=== PATIENT | male | born 1955 | race Caucasian/White ===

== ENCOUNTER → 2024-03-08 | Outpatient (CLI) | payer MEDICARE ==
[2024-03-08 11:16] LABS: Partial Thromboplastin Time 23.5 sec (22.0-30.0)
[2024-03-08 14:05] LABS: Prothrombin Time 10.6 sec (10.0-12.5)
[2024-03-08 15:33] LABS: HCT 48.9 % (39.6-50.0); MCH 30.4 pg (27.0-32.0); MCHC 32.7 g/dL (32.0-37.0); Mean Platelet Volume 9.8 FL (9.5-12.2); NRBC Per 100 WBC 0 X 10*3/uL (0.00-0.01); Platelet Count 287 X 10*3/uL (140-440); RBC 5.26 X 10*6/uL (4.40-5.60); RDW 13.1 % (11.5-14.5); WBC 6.77 X 10*3/uL (4.50-10.00)
[2024-03-08 15:47] LABS: ALT 47 U/L (10-49); AST 29 U/L (14-35); Albumin 4.4 g/dL (3.8-4.9); Albumin/Globulin Ratio 1.76 Ratio (1.60-3.17); Alkaline Phosphatase 119 U/L (41-126); BUN/Creat Ratio 15.91 Ratio (12.00-20.00); Blood Urea Nitrogen 17.5 mg/dL (9.0-27.0); Calcium 9.7 mg/dL (8.7-10.3); Carbon Dioxide 25.1 mmol/L (21.6-31.8); Chloride 103 mmol/L (96-109); Globulin 2.5 g/dL (1.6-3.3); Glucose 112 mg/dL (70-110); Sodium 137 mmol/L (135-145); Total Bilirubin 0.5 mg/dL (0.3-1.2); Total Protein 6.9 g/dL (6.2-8.2)
== END | disposition home or self-care (01) ==
LOC: LABWHC1 10:07
PROVIDERS: ATTEND Orthopaedic Surgery Sports Medicine
DX: Z01.818 Encounter for other preprocedural examination (principal)
CPT/HCPCS: 80053; 85027; 85610; 85730

== ENCOUNTER 2024-03-21 05:49 | Day surgery (SDC) | payer MEDICARE ==
[~2024-03-21 05:49] MED LIST: TRANEXAMIC 1,000 MG/100ML-NACL 1,000 MG in SALINE 1 100ML.BAG IVPB PRN
[2024-03-21] MEDS: IV FLUID CONTINUATION 1,000 ML IV ONE (06:45)
[2024-03-21] MEDS: ACETAMINOPHEN TAB 500 MG TAB PO PRN (06:45)
[2024-03-21] MEDS: GABAPENTIN 300 MG CAP PO PRN (06:46)
[2024-03-21] MEDS: MELOXICAM 7.5 MG TAB PO PRN (06:46)
[2024-03-21] MEDS: ONDANSETRON 4 MG/2 ML VIAL IVP PRN (07:00)
[2024-03-21] MEDS ORDERED: HYDROmorphone 0.5 MG/0.5 ML SYRINGE IVP PRN ×4 (07:00→09:33)
[2024-03-21] MEDS: LACTATED RINGERS 1,000 ML IV SCH ×2 (07:01→11:54)
[2024-03-21] MEDS: MIDAZOLAM 2 MG/2 ML VIAL IV ONE (07:09)
--- NOTE | 2024-03-21 07:19 | P.ANPRN ---
Procedure Note - Anesthesia - Nerve Block Performed Left Interscalene Single Time Out Performed: Yes ([id number]) Date of Procedure: 03/21/24 Procedure Start Time: 07:10 Procedure Stop Time: 07:15 Location of Patient: PreOp Indication: Acute Post-Operative Pain, Requested by Surgeon Sedation Type: Sedate with meaningful contact maintained Preparation: Sterile Prep, Sterile Dressing Position: Sitting Catheter: None Needle Types: Pajunk Needle Gauge: 21 Ultrasound used to visualize needle placement: Yes Ultrasound used to observe medication spread: Yes Injectate: 0.5% Ropivacaine (see comment for volume) (20 mL of 0.5% ropivacaine mixed with 4 mg of dexamethasone) Narrative: 22-gauge 50 mm needle used with 1 attempt Blood Aspirated: No Pain Paresthesia on Injection Noted: No Resistance on Injection: Normal Image Stored and Saved: Yes Events: Uneventful and Well Tolerated
[2024-03-21] MEDS: ceFAZolin 3,000 MG in SODIUM CHLORIDE 0.9% IRRIGATIO 3,000 ML IRRIGATION ONE (08:20)
[2024-03-21] MEDS: VANCOMYCIN 1,000 MG VIAL MISCELLANE ONE ×2 (08:33→09:01)
[2024-03-21] MEDS ORDERED: SENNOSIDES-DOCUSATE SODIUM 1 EACH TAB PO PRN (09:33)
[2024-03-21] MEDS ORDERED: METOCLOPRAMIDE 5 MG/ML 2 ML VIAL IVP PRN (09:33)
[2024-03-21] MEDS ORDERED: diphenhydrAMINE 25 MG CAP PO PRN (09:33)
[2024-03-21] MEDS ORDERED: ONDANSETRON 4 MG/2 ML VIAL IVP PRN (09:33)
--- NOTE | 2024-03-21 10:26 | OP ---
OPERATIVE REPORT DATE OF SERVICE : 03/21/2024 PHOTO MANAGER: Matty Ortiz PA-C PREOPERATIVE DIAGNOSIS: Left shoulder advanced rotator cuff arthropathy. POSTOPERATIVE DIAGNOSIS: Left shoulder advanced rotator cuff arthropathy. PROCEDURE PERFORMED: Left reverse total shoulder arthroplasty. ANESTHESIA: General endotracheal. ESTIMATED BLOOD LOSS: 100 mL. DRAINS: None. COMPLICATIONS: None apparent. DISPOSITION: Postanesthesia care unit. INDICATIONS: Arjun is a very pleasant 68-year-old male with longstanding left shoulder pain. The preoperative workup including x-rays and MRI revealed advanced rotator cuff osteoarthrosis of the left shoulder. At this point, it is felt that he has failed conservative management. He would like to proceed with operative intervention. The risks of procedure were discussed with him in detail. These risks include but are not limited to risk of infection, nerve damage, bleeding, pain, instability in the shoulder, loosening of the implants, and deep infection. There is also small risk of deep vein thrombosis which could lead to fatal pulmonary emboli. The patient understood these risks. All of his questions with regard to the risks of procedure were answered to his satisfaction. Appropriate informed consent was obtained. DESCRIPTION OF PROCEDURE: The patient was identified in the preoperative holding area. Surgical site was marked by both the patient and myself. He was given 2 g of Ancef IV for prophylactic purposes. He was then transported to the operative suite, was placed supine on the operating table. A general anesthetic was then administered and dosed per Anesthesia Department without apparent complication. Examination under anesthesia was then performed of the left shoulder. Passive elevation was 130 degrees. External rotation to the side was to 30 degrees. The patient was then placed into the beach chair position, well-padded in preparation for surgery. Great care was taken to ensure the neck was in neutral alignment, well- padded and maintained that way throughout the operative procedure. His legs were appropriately padded as well. The patient's left upper extremity was then prepped and draped in usual sterile fashion. Standard surgical pause was undertaken to ensure that appropriate preoperative antibiotics had been given and that we were operating on the correct site. All staff in the room were in agreement, and we proceeded. The acromion, AC joint, clavicle, and coracoid were marked with a surgical pen. A planned incision starting above the clavicle and extending distally over the deltopectoral interval approximately 1 cm lateral to the coracoid was marked with a surgical pen. The incision was then made with a 10-blade scalpel. Dissection was carried down sharply to the deltoid fascia. The deltopectoral interval was identified to the level of the clavicle. A small band retractor was then placed under the proximal deltoid. I then released the deltoid fascia on the lateral aspect of the cephalic vein. The vein was preserved and left in its bed medially. The cephalic vein was then protected throughout the entire case. I then identified the clavipectoral fascia. This was incised proximally to the level of the coracoacromial ligament. The coracoacromial ligament was left intact. We then used my finger to spread the interval between the conjoint tendon and the subscapularis. I felt for the axillary nerve which was readily palpable. Then cleared the subacromial subdeltoid spaces of bursal and scar tissue. There was significant bursal and scar tissue in the subacromial space. This was excised. I then utilized a brown retractor to hold the deltoid and expose the humeral head. I then proceeded with release of the subscapularis and the anterior inferior shoulder capsule. The rotator cuff was inspected this point. The greater tuberosity was completely devoid of any attachment of rotator cuff. The course of the biceps tendon was also identified. I then released the rotator interval. It was released at the base of the coracoid and then out laterally. The subscapularis and the capsule were then released intratendinously. The subscapularis and capsular release extended distally in a lazy-S fashion approximately 1 cm medial to the bicipital groove. I then continued to release the capsule along the inferior neck in a vertical fashion to approximately 6 o'clock position. Great care was taken to ensure that the capsule was always visualized as it was released. This was done as to avoid injuring the axillary nerve. I then brought a [place] wedding transportation driver with the arm externally rotated and abducted. I continued to release the capsule inferomedially to the 4 o'clock position. The inferior osteophytes were then removed as well. This was done with a rongeur. I then proceeded with preparation of the humerus. I removed the goat's [place] osteophytes. I then removed the subchondral plate from the superior aspect of the humeral head utilizing a large rongeur. I then used a starting reamer to gain access to the humeral canal. This was approximately 1 cm medial to the rotator cuff insertion and 1 cm posterior to the bicipital groove. I then prepared the humeral canal with hand reaming. I started with a 6 mm reamer and incrementally increased until firm resistance was encountered at 12 mm. The reamer handle was then left in place. I then utilized a humeral resection guide. This was set at 30 degrees of retrotorsion. The cutting block was then set at the insertion of the rotator cuff. I then proceeded to osteotomize the head with an oscillating saw. I then removed the resection guide and then completed the osteotomy. I then proceeded with trial stem placement. I started with a 6 mm broach and incrementally increased up to a 12 mm broach. The 12 mm broach was then left in place. At this point, I did release the biceps tendon. This was tenotomized at the level of the superior labrum. A bone hook was then used to pull the humerus out laterally. I inspected the joint for any loose bodies. Again, the rotator cuff was inspected. Again, the greater tuberosity was completely devoid of any rotator cuff attachment. I then placed a Bhattman retractor on the posterior aspect of the glenoid rim. The arm was placed at approximately 80 degrees of abduction and in slight flexion on the [place] stand. I then proceeded to remove the hypertrophic labrum to definitively identify the actual glenoid. I then proceeded to place a starting pin. I utilized a mini base plate guide pin. This pin was then placed just inferior to the center of the glenoid in approximately 10 degrees of inferior tilt. I utilized a mini base plate reamer to ream the glenoid. As minimal amount of reaming was done as possible to fully seat the base plate. This was done to preserve as much subchondral bone as possible. The mini base plate was then impacted onto the real glenoid. I then placed a central screw. It was measured and then a 30 mm central screw was placed. The screw had excellent purchase in the bone. I was able to rotate the scapula through the screwdriver when it was fully seated. I then proceeded to place the peripheral locking screws. The inferior screw was a 20 mm screw. The anterior and posterior screws were 15 mm screws and the superior screw was a 15 mm screw. I then proceeded to place the real glenosphere. It shows a 40 mm glenosphere. I used the least amount of offset. The Camara taper was dried and the 40 mm glenosphere was impacted onto a dry Camara taper. It was securely seated. At this point, I proceeded with trial stem placement. I started with a standard tray and a standard poly. This was a mildly difficult reduction. The shoulder was taken through a full range of motion. It was quite stable. There was minimal shuck. The conjoint tendon was of appropriate tension. The shoulder was then redislocated very carefully. I then had the primary care sales representative open a Biomet size 12 mini stem standard tray for an Esvin standard polyethylene for a 40 mm glenosphere. The wound was then thoroughly irrigated with sterile saline solution with antibiotic added via pulse lavage. Used the IrriSept antiseptic solution at this point. The real size 12 mini stem was then impacted into the humeral canal and at approximately 30 degrees of retrotorsion. This had a very secure fit. The Camara taper was then dried and then the standard tray and standard poly were then impacted onto the real stem. The shoulder was then reduced. Again, it was a mildly difficult reduction. It was very stable once reduced. No impingement noted. I obtained a full range of motion. He did have minimal shuck and the conjoint tendon was of appropriate tension. I also felt for the axillary nerve at this time, which was readily palpable and uninjured during the case. At this point, no further work was deemed necessary. The shoulder was then thoroughly irrigated with sterile saline solution with antibiotic added. Approximately 500 mg of vancomycin powder was then placed deep in the incision. The deltopectoral interval was reapproximated with 0 Vicryl interrupted suture. Subcutaneous tissue was again irrigated. The remaining 500 mg of vancomycin powder was then placed subcutaneously. The subcutaneous tissue was closed with 2-0 Vicryl interrupted suture. The skin was closed with a running 3-0 Quill suture. Dermabond was applied to the incision. Sterile compressive dressings were applied. His left upper extremity was placed into a standard sling. All sponge and needle counts were deemed correct prior to closure. The patient tolerated the procedure without apparent complication. He was transferred to recovery room in stable condition. MMODL / IJN: [id number] /
--- NOTE | 2024-03-21 11:11 | XR ---
EXAMINATION TYPE: XR shoulder limited LT DATE OF EXAM: 03/21/2024 10:46 AM COMPARISON: None. CLINICAL INDICATION: Male, 68 years old with history of post op, TECHNIQUE: AP view(s) obtained. FINDINGS: There is placement of a left shoulder prosthesis. No acute fractures are evident. Postsurgical soft t issue changes are present IMPRESSION: 1. No acute fracture post left shoulder replacement [facility] Bonilla Reese, , 03/21/2024 11:09 AM
--- NOTE | 2024-03-21 13:25 | P.CONS ---
History of Present Illness - History of Present Illness 68-year-old pleasant male is admitted for left shoulder revision surgery postoperatively patient still has some pain otherwise doing well patient has history of hypertension did not take his medications today morning patient blood pressure is low normal at this time patient takes Norvasc bisoprolol and angiotensin receptor nan. REVIEW OF SYSTEMS: All other systems are negative except those mentioned in the HPI PHYSICAL EXAMINATION: GENERAL: The patient is alert and oriented x3, not in any acute distress. Well developed, well nourished. Obese HEENT: Pupils are round and equally reacting to light. EOMI. No scleral icterus. No conjunctival pallor. Normocephalic, atraumatic. No pharyngeal erythema. No thyromegaly. CARDIOVASCULAR: S1 and S2 present. No murmurs, rubs, or gallops. PULMONARY: Chest is clear to auscultation, no wheezing or crackles. ABDOMEN: Soft, nontender, nondistended, normoactive bowel sounds. No palpable organomegaly. MUSCULOSKELETAL: No joint swelling or deformity. EXTREMITIES: No cyanosis, clubbing, or pedal edema. NEUROLOGICAL: Gross neurological examination did not reveal any focal deficits. SKIN: No rashes. Assessment and plan -Hypertension: Patient has mild perioperative hypotension hold off on amlodipine and angiotensin receptor nan bisoprolol will be continued will monitor the patient if needed patient will be started on his antihypertensive medications -Hyperlipidemia -Hypertension -History of prostate cancer not active at this time - DVT prophylaxis: As per primary service Past Medical History Past Medical History: Cancer, Hyperlipidemia, Hypertension Additional Past Medical History / Comment(s): prostate cancer History of Any Multi-Drug Resistant Organisms: None Reported Past Surgical History: Appendectomy, Joint Replacement, Prostate Surgery Additional Past Surgical History / Comment(s): jan rt knee replacement,prostatectomy, Past Anesthesia/Blood Transfusion Reactions: No Reported Reaction Past Psychological History: No Psychological Hx Reported Smoking Status: Never smoker Past Alcohol Use History: None Reported Past Drug Use History: None Reported - Past Family History Father History Unknown: Yes Medications and Allergies Home Medications Medication Instructions Recorded Confirmed Type Atorvastatin [Lipitor] 20 mg PO HS 03/15/24 03/21/24 History Bisoprolol Fumarate 5 mg PO HS 03/15/24 03/21/24 History Celecoxib 200 mg PO BID 03/15/24 03/15/24 History Losartan Potassium 100 mg PO DAILY 03/15/24 03/21/24 History amLODIPine BESYLATE 5 mg PO HS 03/15/24 03/21/24 History Allergies Allergy/AdvReac Type Severity Reaction Status Date / Time No Known Allergies Allergy Verified 03/15/24 11:41 Physical Exam Vitals: Vital Signs Temp Pulse Pulse Resp BP Pulse Ox 03/21/24 11:47 70 109/74 03/21/24 11:32 69 107/72 03/21/24 11:17 71 101/67 90 L 03/21/24 11:02 97.7 F 71 17 107/73 88 L 03/21/24 10:23 68 16 112/64 93 L 03/21/24 10:08 70 16 108/65 95 03/21/24 09:53 69 16 117/76 90 L 03/21/24 09:38 97 F L 81 18 135/64 93 L 03/21/24 07:21 66 16 127/74 97 03/21/24 06:41 97.0 F L 64 18 129/83 94 L Intake and Output 03/20/24 03/21/24 03/21/24 22:59 06:59 14:59 Intake Total 100 651 Output Total 100 Balance 100 551 Intake: IV 100 651 Output: Estimated Blood Loss 100 Other: Weight 111.7 kg 111.7 kg
[2024-03-21] MEDS: HYDROcodone/APAP 7.5-325MG 1 EACH TAB PO PRN (16:45)
[2024-03-21] MEDS: PANTOPRAZOLE 40 MG TABLET PO SCH (21:23)
[2024-03-21] MEDS: CALCIUM CARBONATE 500 MG CHEWABLE PO PRN (21:23)
[2024-03-21] MEDS: BISOPROLOL 5 MG TAB PO SCH (21:23)
[2024-03-21] MEDS: ATORVASTATIN 20 MG TAB PO SCH (21:57)
[2024-03-22 08:35] LABS: Basophils # (A) 0.04 X 10*3/uL (0.00-0.10); Basophils % (A) 0.3 %; Eosinophils # (A) 0.05 X 10*3/uL (0.04-0.35); Eosinophils % (A) 0.4 %; HCT 41.7 % (39.6-50.0); HGB 13.6 g/dL (13.0-17.0); Lymphocytes # (A) 1.88 X 10*3/uL (0.90-5.00); Lymphocytes % (A) 15.2 %; MCH 30.3 pg (27.0-32.0); MCHC 32.6 g/dL (32.0-37.0); MCV 92.9 FL (80.0-97.0); Mean Platelet Volume 9.8 FL (9.5-12.2); Monocytes # (A) 0.83 X 10*3/uL (0.20-1.00); Monocytes % (A) 6.7 %; NRBC Per 100 WBC 0 X 10*3/uL (0.00-0.01); Neutrophils # (A) 9.53 X 10*3/uL (1.80-7.70); Neutrophils % (A) 76.9 %; Platelet Count 254 X 10*3/uL (140-440); RBC 4.49 X 10*6/uL (4.40-5.60); WBC 12.39 X 10*3/uL (4.50-10.00)
[2024-03-22] MEDS ORDERED: MELOXICAM 7.5 MG TAB PO SCH (09:00)
[2024-03-22] MEDS: HYDROcodone/APAP 7.5-325MG 1 EACH TAB PO PRN (09:22)
--- NOTE | 2024-03-22 13:27 | P.PN ---
Subjective Progress Note Date: 03/22/24 68-year-old pleasant male is admitted for left shoulder revision surgery postoperatively patient still has some pain otherwise doing well patient has history of hypertension did not take his medications today morning patient blood pressure is low normal at this time patient takes Norvasc bisoprolol and ang iotensin receptor nan. 03/22/2024 Patient is evaluated in follow up today on the medical floor. Patient states pain is controlled to the left shoulder with 2 norco. Discussed continuing on bowel regimen while using narcotics for pain. Verbalizes understanding. Blood pressure up to 130-140s systolic and can be resumed on his home medications on discharge. Review of Systems Constitutional: Denied any fatigue denied any fever. Cardio vascular: denied any chest pain, palpitations Gastrointestinal: denied any nausea, vomiting, diarrhea Pulmonary: Denied any shortness of breath cough Neurologic denied any new focal deficits All inpatient medications were reviewed and appropriate changes in these medications as dictated in the interval history and assessment and plan. PHYSICAL EXAMINATION: GENERAL: The patient is alert and oriented x3, not in any acute distress. Well developed, well nourished. Obese HEENT: Pupils are round and equally reacting to light. EOMI. No scleral icterus. No conjunctival pallor. Normocephalic, atraumatic. No pharyngeal erythema. No thyromegaly. CARDIOVASCULAR: S1 and S2 present. No murmurs, rubs, or gallops. PULMONARY: Chest is clear to auscultation, no wheezing or crackles. ABDOMEN: Soft, nontender, nondistended, normoactive bowel sounds. No palpable organomegaly. MUSCULOSKELETAL: No joint swelling or deformity. EXTREMITIES: No cyanosis, clubbing, or pedal edema. NEUROLOGICAL: Gross neurological examination did not reveal any focal deficits. SKIN: No rashes. Assessment and plan -Hypertension: Patient has mild perioperative hypotension hold off on amlodipine and angiotensin receptor nan bisoprolol will be continued will monitor the patient if needed patient will be started on his antihypertensive medications -Hyperlipidemia -Hypertension -History of prostate cancer not active at this time OA postoperative total left shoulder arthroplasty. DVT prophylaxis: As per primary service Patient is cleared medically for discharge home. Patient to continue on aspirin 81 mg BID for the next 30 days for primary DVT prevention. [place] for pain management. Continue on colace for bowel regimen. The impression and plan of care has been dictated by Gris Tang, Nurse Practitioner as directed. Dr. Lorie MD I have performed a history and physical examination and medical decision making of this patient, discussed the same with the dictator, and agree with the dictators assessment and plan as written, documented as a scribe. Based on total visit time, I have performed more than 50% of this visit. Objective - Vital Signs Vital signs: Vital Signs Temp 98.7 F 03/22/24 07:09 Pulse 88 03/22/24 07:09 Resp 18 03/22/24 07:09 BP 144/78 03/22/24 07:09 Pulse Ox 94 L 03/22/24 07:09 FiO2 Intake & Output 03/21/24 03/22/24 03/22/24 18:59 06:59 18:59 Intake Total 651 760 Output Total 100 Balance 551 760 Weight 111.7 kg Intake: IV 651 Oral 760 Output: Estimated Blood Loss 100 Other: # Voids 1 3 # Bowel Movements 0 - Labs CBC & Chem 7: 03/22/24 04:57 Labs: Abnormal Lab Results - Last 24 Hours (Table) 03/22/24 Range/Units 04:57 WBC 12.39 H (4.50-10.00) X 10*3/uL Immature Gran # 0.06 H (0.00-0.04) X 10*3/uL Neutrophils # 9.53 H (1.80-7.70) X 10*3/uL Assessment and Plan Time with Patient: Less than 30
[2024-03-22 14:00] VITALS: BP 128/75; PULSE 78; RESP 16; TEMP 97.6
--- NOTE | 2024-03-22 14:55 | P.DS ---
Providers Expected date of discharge: 03/22/24 Attending physician: Neo Rey Consults: 03/21/24 09:33 Consult Physician Routine Consulting Provider: Mikel Melo Consult Reason/Comments: post op medical management Do you want consulting provider notified?: Yes Primary care physician: Judy Hyde - Discharge Diagnosis(es) (1) Primary osteoarthritis, left shoulder Patient was admitted to the OR on 03/21/24 to undergo a reverse left total shoulder arthroplasty. He had failed conservative measures as an outpatient and desired to proceed with elective surgery after given informed consent. He underwent the above procedure which he tolerated well without complication. Postoperative hospital course has remained without complication. On day of discharge he is afebrile, vital signs stable, labs within acceptable ranges, tolerating by mouth meds and diet, voiding without difficulty, positive flatus, denies abdominal pain or calf pain, pain is controlled on oral pain medication and has no new complaints. Wound is benign, neurovascular status is intact, calves are soft and nontender, abdomen soft and nontender. Review of systems is negative for numbness, tingling, fever, chills, chest pain, shortness of breath, nausea, vomiting, dizziness, headaches, slurred speech or other. Status: Acute Priority: Medium Procedures: Reverse Left TSA Patient Condition at Discharge: Good Plan - Discharge Summary Discharge Rx Participant: Yes New Discharge Prescriptions: New Aspirin [Adult Low Dose Aspirin EC] 81 mg PO BID #60 tab HYDROcodone/APAP 7.5-325MG [[place] 7.5-325] 1 - 2 each PO Q6HR PRN #32 tab PRN Reason: Pain Continue amLODIPine BESYLATE 5 mg PO HS Losartan Potassium 100 mg PO DAILY Atorvastatin [Lipitor] 20 mg PO HS Celecoxib 200 mg PO BID Bisoprolol Fumarate 5 mg PO HS Discharge Medication List Atorvastatin [Lipitor] 20 mg PO HS 03/15/24 [History] Bisoprolol Fumarate 5 mg PO HS 03/15/24 [History] Celecoxib 200 mg PO BID 03/15/24 [History] Losartan Potassium 100 mg PO DAILY 03/15/24 [History] amLODIPine BESYLATE 5 mg PO HS 03/15/24 [History] Aspirin [Adult Low Dose Aspirin EC] 81 mg PO BID #60 tab 03/22/24 [Rx] HYDROcodone/APAP 7.5-325MG [[place] 7.5-325] 1 - 2 each PO Q6HR PRN #32 tab 03/22/24 [Rx] Follow up Appointment(s)/Referral(s): Judy Hyde MD [Primary Care Provider] - 1-2 Days Neo Rey MD [STAFF PHYSICIAN] - 10 Days Patient Instructions/Handouts: Joint Replacement Surgery (DC) Activity/Diet/Wound Care/Special Instructions: maintain sling take meds as directed may shower in 3 days if no bleeding Discharge Disposition: HOME SELF-CARE
== END 2024-03-22 14:43 | disposition home or self-care (01) ==
LOC: OR 05:49 → 4SSUR 09:18 → OR 03-22 14:43
PROVIDERS: ATTEND Orthopaedic Surgery Sports Medicine
DX: M19.012 Primary osteoarthritis, left shoulder (principal); M75.122 Complete rotator cuff tear or rupture of left shoulder, not specified as traumatic; G89.18 Other acute postprocedural pain; E78.5 Hyperlipidemia, unspecified; I10 Essential (primary) hypertension; Z79.899 Other long term (current) drug therapy; Z85.46 Personal history of malignant neoplasm of prostate; Z90.49 Acquired absence of other specified parts of digestive tract; Z90.79 Acquired absence of other genital organ(s); Z96.651 Presence of right artificial knee joint
CPT/HCPCS: 23472; 64415; 85025; 73020; C1776; J2250; J3370; J0690 ×3; J2405